=== PATIENT | male | born 1965 | race Caucasian/White ===

== ENCOUNTER 2016-10-28 12:37 | Emergency (ER) | payer MEDICARE, MEDICAID ==
[~2016-10-28 12:37] MED LIST: ADVAIR DIS1 PUFF/DO2 IH; ALTACE DPS10 MG PO; ASPIR 8181 MG PO; ATENOLOL100 MG PO; BACTROBAN OINT.22 GM TP; CELEXA40 MG PO; DELTASONE DPS20 MG PO; DUONEB DPS3 ML IH; FLUCONAZOLE150 MG PO; GLUCOPHAGE-DPS500 MG PO; GLUCOTROL DPS10 MG PO; GLYNASE6 MG PO; HCTZ12.5 MG PO; LASIX20 M1 PO; LEVAQUIN DPS750 MG PO; MYCOSTATIN PWD15 GM TP; NITROSTAT0.4 MG SL; NOVOLOG100 UNIT/2 SQ; PROAIR HFA8.5 GM IH; PROVENTIL HFA6.7 GM IH; SPIRIVA18 MCG IH; TOPROL XL50 MG PO; ZESTRIL DPS20 MG PO; ZOCOR DPS20 MG PO; ZOFRAN8 MG PO; ZYVOX600 MG PO; [UNRECOGNIZED DRUG - OTHER] PO
--- NOTE | 2016-10-31 09:47 | ER ---
ADMIT: 10/28/2016 RM/LOC: ER [facility] MR#: [id number] [address] [id number] MATTY LEE [address] [place] [address] Emergency Room Report SEX: M AGE: 51 : 1965 DATE: 10/28/2016 ADDENDUM: CHIEF COMPLAINT: Tingling in his left hand which is resolved prior to arrival. HISTORY OF PRESENT ILLNESS: This is a 51-year-old male, who was recently hospitalized for sepsis. It sounds like, just this last month, he was discharged. He is still on antibiotics. He said last night, he went to bed, he just kind of have some chills and he put it through the night. Then this morning, he woke up, he actually said he just felt fine, he was eating lunch, then at 1 o'clock today, then he started to feel a little bit of tingling in his left hand and then also in his lip. He said it went away within minutes, but still decided to come to the ER to get checked out. CBC, BMP, troponin, lactic acid, chest x-ray, and EKG were done along with given him a liter of fluids. Just he looked a little bit dry. Overall finding, his lactic acid was 2.3. CMP is normal except for creatinine of 1.4, but his BUN was normal at 16. CBC is normal except for white count of 10.8. EKG shows sinus rhythm at a rate of 81. No ST elevation or depression over-read by Dr. Blake. His symptoms have still been resolved while here in the emergency room, he feels actually okay, feels okay going home. I am going to discharge him home, have him follow up with Dr. Adkins tomorrow. CLINICAL IMPRESSION: Transient paresthesia of the left hand. BRYAN Bean / Andrew Blake MD / abiola JOB #: [id number] CC: Andrew Blake MD, Attending Physician UNKNOWN, Family Physician
== END 2016-10-28 15:55 | disposition home or self-care (01) ==
LOC: ER 12:37
DX: R20.9 Unspecified disturbances of skin sensation (principal); E11.9 Type 2 diabetes mellitus without complications; E78.00 Pure hypercholesterolemia, unspecified; I10 Essential (primary) hypertension; Z88.1 Allergy status to other antibiotic agents; J44.9 Chronic obstructive pulmonary disease, unspecified